=== PATIENT | female | born 1985 | race Caucasian/White ===

== ENCOUNTER 2022-03-19 10:38 | Outpatient (CLI) | payer OTHER, SELFPAY | END 2022-03-19 10:39 | disposition home or self-care (01) | LOC: OP CLINIC 10:39 | PROVIDERS: Visit Provider Internal Medicine Gastroenterology | DX: Z12.11 Encounter for screening for malignant neoplasm of colon (principal); K63.5 Polyp of colon; K51.50 Left sided colitis without complications; K51.30 Ulcerative (chronic) rectosigmoiditis without complications | CPT/HCPCS: 00811; 45380; 45385; 88305; J2704 ==